=== PATIENT | female | born 1990 | race Caucasian/White ===

== ENCOUNTER 2024-04-08 08:28 | Emergency (ER) | payer MEDICAID, SELFPAY ==
[2024-04-08 08:29] VITALS: BMI 34.4
[2024-04-08 08:49] VITALS: BP 120/79; PULSE 98; RESP 20; TEMP 37; O2SAT 99
--- NOTE | 2024-04-08 08:55 | PD.EDRME ---
Rapid Medical Screening Exam RME Arrival date/time: 04/08/24 08:28 34-year-old female presents emergency department complaining of nausea vomiting, diarrhea, and dizziness that started this morning. Chief Complaint: Nausea/Vomiting/Diarrhea Time Seen by Provider: 04/08/24 08:48 Vital signs: Vital Signs Temperature 98.6 F 04/08/24 08:49 Pulse Rate 98 04/08/24 08:49 Respiratory Rate 20 04/08/24 08:49 Blood Pressure 120/79 04/08/24 08:49 Pulse Oximetry (%) 99 04/08/24 08:49 Oxygen Delivery Method Room Air 04/08/24 08:49 Vital signs reviewed by provider: Yes
[2024-04-08] MEDS: ONDANSETRON ODT 4 MG TABRAP PO (09:07)
[2024-04-08 09:50] LABS: Basophils # (Auto) 0.1 Thou/mm3 (0.0-0.2); Basophils % (Auto) 1 % (0-2.5); Eosinophils # (Auto) 0.1 Thou/mm3 (0.0-0.5); Eosinophils % (Auto) 1 % (0-10); Hematocrit 48.1 % (36.0-46.0); Hemoglobin 15.7 g/dL (12.0-16.0); Immature Granulocytes % (Auto) 0 % (0-0); Immature Granulocytes Auto 0.04 Thou/mm3 (0.00-0.00); Lymphocytes # (Auto) 1.4 Thou/mm3 (1.0-4.8); Lymphocytes % (Auto) 9 % (10-50); Mean Corpuscular HGB Conc 32.6 g/dl (31.0-37.0); Mean Corpuscular Volume 86 fL (80-100); Monocytes % (Auto) 7 % (0-12); Neutrophils # (Auto) 12.3 Thou/mm3 (1.8-7.7); Neutrophils % (Auto) 83 % (37-80); Nucleated Red Blood Cell % 0 /100 WBC (0); Platelet Count 347 Thou/mm3 (140-440); RDW Standard Deviation 42.8 fL (36.4-46.3); Red Blood Count 5.61 Miln/mm3 (4.00-5.20); White Blood Count 14.9 Thou/mm3 (3.6-11.0)
[2024-04-08 10:04] LABS: HCG,Qualitative Serum Negative
[2024-04-08 10:06] LABS: Alanine Aminotransferase 11 U/L (10-49); Albumin, Serum 4.8 gm/dL (3.5-5.0); Albumin/Globulin Ratio 1.8 (1.2-2.2); Alkaline Phosphatase 96 U/L (46-116); Anion Gap 8 (7-16); Aspartate Amino Transferase 11 U/L (0-34); BUN/Creatinine Ratio 14 Ratio (12-20); Bilirubin,Total 0.6 mg/dL (0.3-1.2); Blood Urea Nitrogen 10 mg/dL (9-23); Calcium 9.1 mg/dL (8.3-10.6); Calcium (Corrected) 9.1 mg/dL (8.5-10.1); Carbon Dioxide 23.5 mMol/L (20.0-31.0); Chloride 105 mMol/L (98-107); Creatinine (Component) 0.7 mg/dL (0.6-1.3); Estimated Creatinine Clearance 113.6 mL/min (>60); Globulin 2.6 gm/dL (2.3-3.5); Glucose 99 mg/dL (74-106); Osmolality,Calculated 270 (275-295); Potassium 3.7 mMol/L (3.4-5.1); Sodium 136 mMol/L (136-145); Total Protein 7.4 gm/dL (5.7-8.2); eGFR > 60 See Note
[2024-04-08 11:41] VITALS: BP 111/78; PULSE 90; RESP 16; TEMP 37.2; O2SAT 99
--- NOTE | 2024-04-08 12:45 | PD.EDNV ---
Nausea/Vomit./Diarrhea-RME/HPI General Chief complaint: Nausea/Vomiting/Diarrhea Stated complaint: VOMITING, DIARRHEA, DIZZINESS Time Seen by Provider: 04/08/24 08:48 Arrival date/time: 04/08/24 08:28 RME / HPI RME / HPI Narrative: 04/08/24 08:28 RME: 34-year-old female presents emergency department complaining of nausea vomiting, diarrhea, and dizziness that started this morning. ALEKSANDRA HPI: 34-year-old female unvaccinated for the flu, who works as a reference assistant, who presents to the emergency department with approximately 12 hours of nausea vomiting and diarrhea. She notes vomiting more than 10 episodes and started initially with her dinner meal (Posta and garlic bread) followed by approximately 5-10 episodes of watery diarrhea. She has had a runny nose and a cough for the last 2 days. She has also had some upper respiratory infections and her children. 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 Related Data Home Medications ?Medication ?Instructions ?Recorded ?Confirmed ascorbic acid (vitamin C) 500 mg 500 mg PO QDAY 05/22/23 05/26/23 tablet (Vitamin C) aspirin 81 mg tablet,delayed 81 mg PO QDAY 05/22/23 05/26/23 release diphenhydramine HCl 50 mg capsule 50 mg PO HS 05/22/23 05/26/23 (Banophen) lurasidone 40 mg tablet 40 mg PO HS 05/22/23 05/26/23 vit no.95-ferrous 1 tab PO QDAY 05/22/23 05/26/23 fumarate 28 mg-folic acid 800 mcg tablet () Previous Rx's ?Medication ?Instructions ?Recorded ondansetron 4 mg disintegrating 4 mg PO Q8H PRN nausea and 04/08/24 tablet vomiting #10 tabs oseltamivir 75 mg capsule (Tamiflu) 75 mg PO Q12H 5 days #10 caps 04/08/24 Allergies Allergy/AdvReac Type Severity Reaction Status Date / Time coconut Allergy Severe Hives Unverified 04/08/24 08:30 pineapple Allergy Severe TONGUE Verified 04/08/24 08:30 SWELLING sulfamethoxazole Allergy Severe RASH Verified 04/08/24 08:30 trimethoprim Allergy Severe RASH Verified 04/08/24 08:30 Review of Systems Review of Systems Systems Reviewed: All systems reviewed, normal except as documented ED Exam Narrative Physical exam: GENERAL APPEARANCE: AxOx4, generally well-appearing, no acute distress. HEENT: NC, AT. MMM. EOMI, clear conjunctiva, oropharynx clear. NECK: Supple without lymphadenopathy. No stiffness or restricted ROM. HEART: Normal rate and regular rhythm, normal S1/S1, no m/r/g LUNGS: CTAB, moving air well. No crackles or wheezes are heard. ABDOMEN: Soft, nontender, nondistended with good bowel sounds heard. BACK: No midline C/T/L spine pain or deformity, No CVAT, no obvious deformity. EXTREMITIES: Without cyanosis, clubbing or edema. MUSCULOSKELETAL: FROM of all major joints, no chest tenderness NEUROLOGICAL: Grossly nonfocal. Alert and oriented, moving all 4 extremities. CN not formally tested but appear grossly intact. Observed to ambulate with normal gait. Skin: Warm and dry without any rash. Course Quality Measures none Orders Category Date Time Status Bedside Influenza A&B Antigen Test NOW Care 04/08/24 09:41 Completed CBC Stat Lab 04/08/24 09:14 Completed CMP [Comprehensive Metabolic Panel] Stat Lab 04/08/24 09:14 Completed HCG,Qualitative Serum Stat Lab 04/08/24 09:14 Completed Ondansetron Odt [Zofran Odt] Med 04/08/24 08:55 Discontinued 4 mg PO X1 ONE Vital Signs Vital signs: Vital Signs Temperature 98.6 F 04/08/24 08:49 Pulse Rate 98 04/08/24 08:49 Respiratory Rate 20 04/08/24 08:49 Blood Pressure 120/79 04/08/24 08:49 Pulse Oximetry (%) 99 04/08/24 08:49 Oxygen Delivery Method Room Air 04/08/24 08:49 SpO2 99% on room air, not hypoxic Nausea/Vomiting/Diarrhea MDM Narrative MDM Narrative:: Ms. Jean-Baptiste, is otherwise healthy female who presents with the respiratory symptoms consistent with a viral gastroenteritis. She does have sick contacts at home. She is not vaccinated for the flu which raise concerns for an influenza-like illness. She does work as a QA on [employer] system however does not meet epidemiologic contact raising concerns for influenza A H5. Flu testing was done via RME which was negative for influenza A or B. This has poor negative. Evaluate for influenza but in particular is not positive for B which would be more contrary to having influenza A H5. Patient otherwise clinically well-appearing and tolerating p.o. fluids here after the Zofran. She has a benign abdominal exam without abdominal pain therefore further radiography is not indicated such as CT scan. Laboratory testing was unremarkable and significant for normal electrolytes and normal renal function. She has little to no clinical signs of dehydration, and is tolerating oral fluids, IV fluids are not indicated today. We have given her strict return precautions, and follow-up closely with her primary care physician in 5 to 7 days if symptoms or not improving Patient data External records reviewed:: [facility] previous records Clinical information provided by:: patient and spouse Social determinants that could affect healthcare access:: none Patient has the following chronic illnesses:: None How is presenting disease/condition affected by chronic disease/condition?: no chronic disease Evaluation data The following diagnostics were reviewed and interpreted by me:: lab results Lab and/or radiology exams considered but not ordered:: As per narrative Interpretation Summary: As per narrative Medications / Prescriptions Medications / Prescriptions considered but not ordered:: None Medication administrations:: Medication Administration History Discontinued Medications Ondansetron HCl (Ondansetron Odt 4 Mg Tabrap) 4 mg PO X1 ONE; Protocol Stop: 04/08/24 08:56 Last Admin: 04/08/24 09:07 Dose: 4 mg Documented By: [facility] Comments: WOULD NOT SCAN Above Consultations Consultation(s) initiated? (list below): No Diagnosis Nausea Differential Diagnosis: traveler's diarrhea, food poisoning and gastroenteritis Most likely diagnosis given after review of the tests above:: See below Admission Indicated Admission indicated?: not indicated Admission Request Was there a request for admission?: No Disposition Plan Disposition Plan: Discharge Discharge Attestation Discharge Attestation: The patient and all family members were given an opportunity to ask questions and understood the discharge instructions. Discharge instructions specifically effects, indications for sooner follow up or return to the emergency department, and the expected course of current diagnosis. Patient condition: Stable Discharge Plan Plan Patient Disposition: HOME (Self Care) Prescriptions/Referrals Prescriptions/Med Rec: New oseltamivir [Tamiflu] 75 mg capsule 75 mg PO Q12H 5 Days Qty: 10 0RF ondansetron 4 mg tablet,disintegrating 4 mg PO Q8H PRN (Reason: nausea and vomiting) Qty: 10 0RF No Action diphenhydramine HCl [Banophen] 50 mg capsule 50 mg PO HS Patient Comments: TAKE 1 CAPSULE BY MOUTH AT BEDTIME aspirin 81 mg tablet,delayed release (DR/EC) 81 mg PO QDAY Patient Comments: TAKE 1 TABLET BY MOUTH EVERY DAY FOR 60 DAYS ascorbic acid (vitamin C) [Vitamin C] 500 mg tablet 500 mg PO QDAY Patient Comments: TAKE 1 TABLET BY MOUTH EVERY DAY FOR 90 DAYS PNV cmb#95-ferrous fumarate-FA [] 28 mg iron- 800 mcg tablet 1 tab PO QDAY Patient Comments: TAKE 1 TABLET BY MOUTH EVERY DAY FOR 90 DAYS lurasidone 40 mg tablet 40 mg PO HS Patient Comments: TAKE 1 TABLET BY MOUTH EVERY DAY IN THE EVENING WITH FOOD Referrals: Wallace Ellis MD [Primary Care Provider] - In 1 week Problem List Clinical Impression: Influenza-like illness, Viral gastroenteritis Patient/Caregiver Discharge Instructions Education Materials: ED Gastroenteritis, Viral (Adult) Additional Instructions: Follow-up with your primary care doctor in - for recheck. You can return to the emergency department sooner symptoms worsen or if you notice any new, concerning issues. Print Language: [place]errat[place] Stand Alone Forms: Camryn Award Info., Patient Portal Info Letter, Work/School Release
== END 2024-04-08 13:23 | disposition home or self-care (01) ==
PROVIDERS: Emergency Provider Emergency Medicine; PCP Family Medicine
DX: J11.1 Influenza due to unidentified influenza virus with other respiratory manifestations (principal); A08.4 Viral intestinal infection, unspecified
CPT/HCPCS: 36415; 80053; 80307; 81001; 83690; 84703; 85025; 87400; 87502; 99283; Q0162